=== PATIENT | male | born 1995 | race Caucasian/White ===

== ENCOUNTER 2016-10-25 07:09 | Emergency (ER) | payer SELFPAY ==
[~2016-10-25] VITALS: Ht 172.7 cm; Wt 72.0 kg
[~2016-10-25 07:09] MED LIST: NO MEDS
[2016-10-25] MEDS ORDERED: TETANUS AND DIPHTHERIA TOX/PF 0.5ML SYR (ADULT) IM ONE ×2 (07:45→11:30)
[2016-10-25 08:03] LABS: BASOPHILS % 0.7 % (0.0-2.0); EOSINOPHILS % 3.4 % (0.0-5.0); HEMATOCRIT. 51.4 % (42.0-52.0); HEMOGLOBIN. 17.7 g/dL (14.0-18.0); LYMPHOCYTES % 25.6 % (20.0-50.0); MEAN CORPUSCULAR HEMOGLOBIN 30.9 pg (28.0-32.0); MEAN CORPUSCULAR HGB CONC 34.3 g/dL (31.0-37.0); MEAN PLATELET VOLUME 9.1 fl (7.4-10.4); NEUTROPHILS % 62.3 % (40.0-76.0); PLATELET 176 x1000/uL (130-400); RED BLOOD CELL COUNT 5.72 mill/uL (4.7-6.1); RED CELL DISTRIBUTION WIDTH 12.7 % (11.6-14.6); WHITE BLOOD COUNT 9.3 x1000/uL (4.5-11.0)
[2016-10-25 08:06] LABS: CHLORIDE 105 mEq/L (98-107); INDEX HEMOLYSI 1 (1-3); INDEX ICTERIC 1 (1-4); INDEX LIPEMIC 1 (1-3)
[2016-10-25 08:13] LABS: ACETAMINOPHEN < 2 ug/mL (10-30); ANION GAP 16; CALCIUM 8.8 mg/dL (8.5-10.1); CARBON DIOXIDE 24 mEq/L (21-32); ETHANOL BLOOD 140 mg/dL; UREA NITROGEN BLOOD 13 mg/dL (7-21); eGFR > 60 mL/min (>60)
[2016-10-25] MEDS ORDERED: POTASSIUM CHLORIDE 20MEQ TABLET SR PO ONE (08:30)
[2016-10-25 10:49] LABS: *AMPHETAMINES SCREEN URINE PRESUMTIVE POSITIVE (NEGATIVE); *BARBITURATES SCREEN URINE NEGATIVE (NEGATIVE); *BENZODIAZEPINES SCREEN URINE NEGATIVE (NEGATIVE); *COCAINE SCREEN URINE NEGATIVE (NEGATIVE); CANNABINOID URINE SCREEN NEGATIVE (NEGATIVE); ECSTASY MDMA SCREEN URINE NEGATIVE (NEGATIVE); METHADONE URINE SCREEN NEGATIVE (NEGATIVE); OPIATES URINE SCREEN NEGATIVE (NEGATIVE); PHENCYCLIDINE URINE SCREEN NEGATIVE (NEGATIVE)
[2016-10-25] MEDS ORDERED: TETANUS, DIPHTHERIA, PERTUSSIS VAC/PF 0.5ML (>7YR OLD) IM ONE (12:15)
[2016-10-25 20:32] VITALS: BP 112/72
== END 2016-10-25 20:34 | disposition home or self-care (01) ==
LOC: ER 07:15
DX: F10.229 Alcohol dependence with intoxication, unspecified (principal); F15.10 Other stimulant abuse, uncomplicated; T14.91 Suicide attempt; E87.6 Hypokalemia; Y90.6 Blood alcohol level of 120-199 mg/100 ml; F91.9 Conduct disorder, unspecified; Z78.1 Physical restraint status; X83.8XXA Intentional self-harm by other specified means, initial encounter; Y92.018 Other place in single-family (private) house as the place of occurrence of the external cause
CPT/HCPCS: 36415; 80048; 80305; 80329; 85025; 90471; 90715; 99284; G0482; Z7610; 80307; 90714

== ENCOUNTER 2019-11-09 16:39 | Emergency (ER) | payer SELFPAY ==
[~2019-11-09] VITALS: Ht 167.6 cm; Wt 87.0 kg
[2019-11-09 18:22] VITALS: BP 138/78
== END 2019-11-09 18:23 | disposition home or self-care (01) ==
LOC: ER 16:39
DX: R50.9 Fever, unspecified (principal)
CPT/HCPCS: 99281

== ENCOUNTER 2023-12-25 17:11 | Emergency (ER) | payer SELFPAY ==
[~2023-12-25] VITALS: Ht 152.4 cm; Wt 89.0 kg
[2023-12-25 17:16] VITALS: O2SAT 100
[2023-12-25] MEDS: MORPHINE SULFATE 4 MG/ML INJ (FOR IV/IM USE) IV ONE (18:25)
[2023-12-25] MEDS: ONDANSETRON HCL 4MG/2ML INJ IV ONE (18:26)
[2023-12-25] MEDS: TETANUS, DIPHTHERIA, PERTUSSIS VAC/PF 0.5ML (>10YR OLD) IM ONE (18:26)
[2023-12-25] MEDS: CEFTRIAXONE 1GM/50ML 50 ML IV ONE (18:26)
[2023-12-25 18:34] LABS: BASOPHILS % 0.7 % (0.0-2.0); DIFFERENTIAL COMMENT 0; EOSINOPHILS % 2.9 % (0.0-5.0); HEMATOCRIT. 44.3 % (42.0-52.0); HEMOGLOBIN. 15.8 g/dL (14.0-18.0); LYMPHOCYTES % 22.6 % (20.0-50.0); MEAN CORPUSCULAR HEMOGLOBIN 32.2 pg (28.0-32.0); MEAN CORPUSCULAR HGB CONC 35.6 g/dL (31.0-37.0); MEAN CORPUSCULAR VOLUME 90.4 fL (80.0-94.0); MEAN PLATELET VOLUME 9.2 fl (7.4-10.4); MONOCYTES % 6.5 % (2.0-8.0); NEUTROPHILS % 67.3 % (40.0-76.0); PLATELET 188 x1000/uL (130-400); RED CELL DISTRIBUTION WIDTH 12.9 % (11.6-14.6); WHITE BLOOD COUNT 7.9 x1000/uL (4.5-11.0)
[2023-12-25 18:39] LABS: CHLORIDE 106 mEq/L (98-107); POTASSIUM 3.4 mEq/L (3.5-5.1); SODIUM 139 mEq/L (136-145)
[2023-12-25 18:40] LABS: CALCIUM 9.8 mg/dL (8.7-10.4); CARBON DIOXIDE 25 mEq/L (21-32)
[2023-12-25 18:45] LABS: GLUCOSE 108 mg/dL (70-105); UREA NITROGEN BLOOD 11 mg/dL (9-23)
[2023-12-25 18:47] LABS: ALANINE AMINOTRANSFERASE 44 IU/L (10-49); ALBUMIN 4.6 g/dL (3.2-4.8); ASPARTATE AMINOTRANSFERASE 39 IU/L (<34); BILIRUBIN TOTAL 0.6 mg/dL (0.1-1.0); PROTEIN TOTAL 7.1 g/dL (6.0-8.3)
[2023-12-25] MEDS: FENTANYL CITRATE/PF 50MCG/ML 2ML VIAL IV ONE (19:21)
[2023-12-25 19:33] VITALS: BP 159/95; PULSE 107; RESP 18; TEMP 98.3
== END 2023-12-25 19:00 | disposition short-term general hospital (02) ==
LOC: ER 17:11
DX: S61.512A Laceration without foreign body of left wrist, initial encounter (principal); S61.011A Laceration without foreign body of right thumb without damage to nail, initial encounter; S81.812A Laceration without foreign body, left lower leg, initial encounter; Z98.890 Other specified postprocedural states; X58.XXXA Exposure to other specified factors, initial encounter; Y93.89 Activity, other specified; Y92.89 Other specified places as the place of occurrence of the external cause; Y99.8 Other external cause status
CPT/HCPCS: 99285; 96365; 96375; 80053; 85025; 36415; 90715; 90471; J3010; J0696; J2405; J2270